=== PATIENT | female | born 1960 | race Caucasian/White ===

== ENCOUNTER → 2019-09-07 11:39 | Outpatient (CLI) | payer BC, SELFPAY ==
--- NOTE | ~2019-09-07 | MM_ITS ---
EXAMINATION: MM screening jamal BI w zuleika HISTORY: Screening mammogram TECHNIQUE: Craniocaudal and mediolateral oblique 3-D tomosynthesis images were obtained and synthetic 2-D images were generated. CAD analysis was submitted and interpreted. COMPARISON: 07/08/2018 BREAST PARENCHYMAL COMPOSITION: The breasts are heterogeneously dense, which may obscure small masses . FINDINGS: There is no evidence of suspicious mass, calcification, or architectural distortion to sugg est malignancy in either breast. There has been no suspicious interval change. IMPRESSION: 1. No mammographic evidence of malignancy. 2. Recommend routine screening mammography in one year. BI-RADS Category 1: Negative Reviewed, dictated and finalized at location A.
== END ==
PROVIDERS: Visit Provider Nurse Practitioner
DX: Z12.31 Encounter for screening mammogram for malignant neoplasm of breast (principal)
CPT/HCPCS: 77063; 77067

== ENCOUNTER 2020-09-13 08:56 | Outpatient (CLI) | payer BC, SELFPAY ==
--- NOTE | ~2020-09-13 | MM_ITS ---
EXAMINATION: MM screening jamal BI w zuleika HISTORY: Screening mammogram, family history of breast cancer in her sister. TECHNIQUE: Craniocaudal and mediolateral oblique 3-D tomosynthesis images were obtained and synthetic 2-D images were generated. CAD analysis was submitted and interpreted. COMPARISON: 09/07/2019, 07/08/2018 BREAST PARENCHYMAL COMPOSITION: The breasts are heterogeneously dense, which may obscure small masses . FINDINGS: RIGHT BREAST: There is no evidence of suspicious mass, calcification, or architectural distortion to suggest malignancy. There has been no significant interval change. LEFT BREAST: There is a possible mass in the posterior third of the outer breast best appreciated 8 c m from the nipple on the craniocaudal view (tomosynthesis image 32/72). IMPRESSION: 1. Possible left breast mass. 2. Additional mammographic views and possible breast ultrasound are recommended. BI-RADS Category 0: Incomplete: Needs additional imaging evaluation. Reviewed, dictated and finalized at location A. IMPRESSION: 1. Possible left breast mass. 2. Additional mammographic views and possible breast ultrasound are recommended . BI-RADS Category 0: Incomplete: Needs additional imaging evaluation.
--- NOTE | ~2020-09-13 | DEXA_ITS ---
Bone Density Report Name: Laurie Adame Age: 60 Sex: Female Ethnicity: White Date of : 1960 Indication: postmenopausal; history of glucocorticoids; Referring Provider: KIRA SHAVER Study: Bone densitometry was performed. Exam Date: September 13, 2020 Accession number: [id number] Bone Density: Region BMD T-score Z-score Classification AP Spine (L1-L4) 0.942 -1.0 0.3 Normal Femoral Neck (Left) 0.730 -1.1 0.1 Osteopenia Total Hip (Left) 0.916 -0.2 0.6 Normal Total Hip Bilateral Avg 0.868 -0.6 0.2 Normal Femoral Neck (Right) 0.659 -1.7 -0.5 Osteopenia Total Hip (Right) 0.818 -1.0 -0.2 Normal World Health Organization criteria for BMD impression classify patients as: Normal (T-score at or above -1.0), Osteopenia (T-score between -1.0 and -2.5), or Osteoporosis (T-score at or below -2.5). 10-year Fracture Risk(1): Major Osteoporotic Fracture 13% Hip Fracture 1.5% Reported Risk Factors: [place] (), Neck BMD=0.659, BMI=26.2, glucocorticoids (1) FRAX(R) Version 3.08. Fracture probability calculated for an untreated patient. Fracture probability may be lower if the patient has received treatment. Clinical Information Provided by Patient: Has taken Glucocorticoids Has used the following medications: Fosamax (i.e. alendronate), Vitamin D Patient maximum height was 66.0 Menopause Age: 53 No regular weight bearing exercise Drinks caffeinated beverages Onset of menses at age 17 Number of children 3 Impression: The patient has low bone mass, based on the Right Femoral Neck T-score. The patient has an estimated ten-year risk of hip fracture of 1.5% and an estimated ten-year risk of major fracture of 13%, based on the WHO FRAX algorithm. The patient has risk factors, including: history of glucocorticoid therapy. Discussion: BONE DENSITY IS LOW AT ONE OR MORE SKELETAL SITES. This patient's lowest T-score is low at one or more skeletal sites. It meets the World Health Organization's (WHO) criteria for ?low bone mass? (T-score between -1.0 and -2.5). The patient's 10-year risk of fracture as calculated by FRAX is less than the threshold where pharmacological therapy is recommended by the National Osteoporosis Foundation (NOF). However, all treatment decisions require clinical judgment and consideration of individual patient factors, including patient preferences, comorbidities, previous drug use, risk factors not captured in the FRAX model (e.g., frailty, falls, vitamin D deficiency, increased bone turnover, interval significant decline in bone density) and possible under or overestimation of fracture risk by FRAX. The patient should follow a healthful lifestyle (good nutrition with adequate calcium and vitamin D, and appropriate weight-bearing exercise). Follow-Up: Consider repeating this study i
== END 2020-09-13 08:57 | disposition home or self-care (01) ==
PROVIDERS: PCP Family Medicine; Visit Provider Obstetrics & Gynecology Gynecology
DX: Z12.31 Encounter for screening mammogram for malignant neoplasm of breast (principal); Z78.0 Asymptomatic menopausal state; R92.8 Other abnormal and inconclusive findings on diagnostic imaging of breast; M85.852 Other specified disorders of bone density and structure, left thigh; M85.851 Other specified disorders of bone density and structure, right thigh
CPT/HCPCS: 77063; 77067; 77080

== ENCOUNTER 2020-10-16 11:14 | Outpatient (CLI) | payer BC, SELFPAY ==
--- NOTE | ~2020-10-16 | MMUS_ITS ---
EXAMINATION: MM diagnostic mammo unilat LT, US breast LT limited HISTORY: Possible left breast mass in posterior third of outer breast on 09/13/2020 craniocaudal scree roel mammogram view TECHNIQUE: Additional 3-D tomosynthesis images of the left breast were performed and synthetic 2-D im ages were generated. CAD analysis was submitted and interpreted. High resolution upper outer and lowe r-outer breast ultrasound was performed. COMPARISON: 09/13/2020 bilateral digital screening FINDINGS: MAMMOGRAPHIC FINDINGS: No suspicious reproducible mass or architectural distortion is evident. ULTRASOUND: No mass or shadowing is detected in the upper outer or lower outer quadrants of the left breast. IMPRESSION: 1. No mammographic evidence of malignancy 2. Routine mammographic screening is recommended. BI-RADS Category 1: Negative Reviewed, dictated and finalized at location A. IMPRESSION: 1. No mammographic evidence of malignancy 2. Routine mammographic screening is recommended. BI-RADS Category 1: Negative
== END 2020-10-16 11:15 | disposition home or self-care (01) ==
PROVIDERS: PCP Family Medicine; Visit Provider Obstetrics & Gynecology Gynecology
DX: R92.8 Other abnormal and inconclusive findings on diagnostic imaging of breast (principal)
CPT/HCPCS: 76642; 77065

== ENCOUNTER 2022-01-23 09:51 | Outpatient (CLI) | payer BC, SELFPAY ==
--- NOTE | ~2022-01-23 | MM_ITS ---
EXAMINATION: MM screening jamal BI w zuleika HISTORY: Screening TECHNIQUE: Craniocaudal and mediolateral oblique 3-D tomosynthesis images were obtained and synthetic 2-D images were generated. CAD analysis was submitted and interpreted. COMPARISON: Comparison to multiple prior studies sequentially, with oldest reviewed study dated 07/08. BREAST PARENCHYMAL COMPOSITION: Breast composed of scattered areas of fibroglandular density FINDINGS: There is no evidence of suspicious mass, calcification, or architectural distortion to sugg est malignancy in either breast. There has been no suspicious interval change. IMPRESSION: 1. No mammographic evidence of malignancy. 2. Recommend routine screening mammography in one year. BI-RADS Category 1: Negative Reviewed, dictated and finalized at location A.
== END 2022-01-23 09:52 | disposition home or self-care (01) ==
PROVIDERS: PCP Family Medicine; Visit Provider Nurse Practitioner
DX: Z12.31 Encounter for screening mammogram for malignant neoplasm of breast (principal)
CPT/HCPCS: 77063; 77067

== ENCOUNTER → 2022-03-18 13:36 | Outpatient (CLI) | payer BC, SELFPAY ==
--- NOTE | ~2022-03-18 | US_ITS ---
US thyroid INDICATION: Thyroid goiter TECHNIQUE: Real-time sonographic images of the thyroid gland were obtained. COMPARISON: Nontoxic thyroid goiter FINDINGS: The right thyroid lobe measures 4.6 x 1.7 x 1.6 cm. The left thyroid lobe measures 4 x 1.2 x 1.4 cm. There is an oval solid hypoechoic right thyroid mass with ill-defined margins, wider than tall and no echogenic foci measuring 2.1 x 1.1 x 1.3 cm, TR 4. No other masses. Normal vascular flow is present. IMPRESSION: 1. Right thyroid mass measuring 2.1 cm, TR 4. Recommend ultrasound-guided fine-needle aspiration bio psy. Reviewed, dictated and finalized at location B. IMPRESSION: 1. Right thyroid mass measuring 2.1 cm, TR 4. Recommend ultrasound-guided fine -needle aspiration biopsy.
== END ==
PROVIDERS: PCP Family Medicine; Visit Provider Family Medicine
DX: E07.9 Disorder of thyroid, unspecified (principal)
CPT/HCPCS: 76536

== ENCOUNTER 2022-04-10 12:36 | Outpatient (CLI) | payer BC, SELFPAY ==
--- NOTE | ~2022-04-10 | US_ITS ---
EXAMINATION: US FNA w image guidance DATE: 04/10/2022 14:30 INDICATION: Nontoxic single thyroid nodule TECHNIQUE: The procedure and its benefits and risks were discussed with the patient. Risks specifically discusse d included bleeding and infection. The patient verbalized understanding of the risks and agreed to pr oceed. A time out was performed to verify patient information and procedure. The neck was prepared an d draped in the usual sterile manner. 3 mL 1% lidocaine was used for local anesthesia. Six passes w ere made with a 25G needle into the lesion. Appropriate needle location was documented with continuo us sonographic guidance. A sterile bandage was applied. There were no immediate complications. FINDINGS: Grayscale ultrasound images demonstrate needles advanced into a right thyroid nodule for biopsy. IMPRESSION: 1. Successful ultrasound-guided fine needle aspiration of right thyroid nodule. Reviewed, dictated and finalized at location A.
== END 2022-04-10 12:37 | disposition home or self-care (01) ==
PROVIDERS: PCP Family Medicine; Visit Provider Physician Assistant
DX: E04.1 Nontoxic single thyroid nodule (principal)
CPT/HCPCS: 10005; 88173; 88305

== ENCOUNTER 2022-07-26 09:56 | Outpatient (CLI) | payer BC, SELFPAY ==
--- NOTE | 2022-07-26 10:06 | ECG_ITS ---
Measurements Intervals [place] Rate: 65 P: 43 VA: 147 QRS: 89 QRSD: 102 T: 38 QT: 398 QTc: 416 Interpretive Statements SINUS RHYTHM LOW QRS VOLTAGE IN PRECORDIAL LEADS [QRS DEFLECTION < 1.0 mV IN CHEST LEADS] MODERATE T-WAVE ABNORMALITY, CONSIDER ANTEROLATERAL ISCHEMIA [-0.1+ mV T WAVE IN V3-V6] ABNORMAL ECG NO PREVIOUS ECG AVAILABLE FOR COMPARISON Electronically Signed On 07-26-2022 14:59:35 REJOGGER by Arturo New M.D.
== END 2022-07-26 09:57 | disposition home or self-care (01) ==
LOC: ANHSURGERY 09:59
PROVIDERS: PCP Family Medicine; Visit Provider Otolaryngology
DX: E78.2 Mixed hyperlipidemia (principal); Z01.818 Encounter for other preprocedural examination; R94.31 Abnormal electrocardiogram [ECG] [EKG]
CPT/HCPCS: 93005

== ENCOUNTER 2022-08-23 09:04 | Outpatient (CLI) | payer BC, SELFPAY ==
--- NOTE | 2022-08-23 09:18 | EST_ITS ---
Patient Info Name: Laurie Adame Age: 62 years : 1960 Gender: Female Ht: 66 in Wt: 165 lbs BSA: 1.88 m2 HR: 61 bpm BP: 125 / 68 mmHg Heart Rhythm: Sinus Rhythm Exam Date: 08/23/2022 9:31 AM Exam Location: [facility] Stress Patient Status: Outpatient Admit Date: 08/23/2022 Staff Ordering Physician: Bernice Carney NP Attending Provider: Tona Duran MD Exercise Technologist: Gracie Lee CT Exercise Physician: Donato Grimes DO Exam Type: CA stress test treadmill Study Info Indications - SYNCOPE A treadmill exercise stress test was performed. Summary 1. 1. Negative Marquise exercise stress test for ischemic ST changes by ECG criteria. 2. 2. Good functional capacity, achieving 8.9 METs of workload. 3. 3. Appropriate HR response to exercise. 4. 4. Appropriate HR recovery at 1 minute post exercise. 5. 5. No imaging with stress testing. 6. 6. Patient informed of the above results. Protocol: Marquise Stress ECG Details Stage: REST Duration (min): 1 min : 27 sec Speed (mph): 0.0 Grade (%): 0 HR (bpm): 66 SBP (mmHg): 125 DBP (mmHg): 68 METS: --- Stage: REST Duration (min): 11 min : 41 sec Speed (mph): 0.0 Grade (%): 0 HR (bpm): 76 SBP (mmHg): 125 DBP (mmHg): 68 METS: --- Stage: STAGE 1 Duration (min): 1 min : 0 sec Speed (mph): 1.7 Grade (%): 10 HR (bpm): 101 SBP (mmHg): 125 DBP (mmHg): 68 METS: --- Stage: STAGE 1 Duration (min): 2 min : 0 sec Speed (mph): 1.7 Grade (%): 10 HR (bpm): 112 SBP (mmHg): 125 DBP (mmHg): 68 METS: --- Stage: STAGE 1 Duration (min): 3 min : 0 sec Speed (mph): 1.7 Grade (%): 10 HR (bpm): 111 SBP (mmHg): 132 DBP (mmHg): 61 METS: --- Stage: STAGE 2 Duration (min): 1 min : 0 sec Speed (mph): 2.5 Grade (%): 12 HR (bpm): 121 SBP (mmHg): 132 DBP (mmHg): 61 METS: --- Stage: STAGE 2 Duration (min): 2 min : 0 sec Speed (mph): 2.5 Grade (%): 12 HR (bpm): 129 SBP (mmHg): 132 DBP (mmHg): 61 METS: --- Stage: STAGE 2 Duration (min): 3 min : 0 sec Speed (mph): 2.5 Grade (%): 12 HR (bpm): 139 SBP (mmHg): 132 DBP (mmHg): 61 METS: --- Stage: STAGE 3 Duration (min): 1 min : 0 sec Speed (mph): 3.4 Grade (%): 14 HR (bpm): 150 SBP (mmHg): 186 DBP (mmHg): 62 METS: --- Stage: STAGE 3 Duration (min): 1 min : 0 sec Speed (mph): 3.4 Grade (%): 14 HR (bpm): 152 SBP (mmHg): 186 DBP (mmHg): 62 METS: --- Stage: RECOVERY Duration (min): 0 min : 59 sec Speed (mph): 0.0 Grade (%): 0 HR (bpm): 115 SBP (mmHg): 186 DBP (mmHg): 62 METS: --- Stage: RECOVERY Duration (min): 1 min : 59 sec Speed (mph): 0.0 Grade (%): 0 HR (bpm): 92 SBP (mmHg): 186 DBP (mmHg): 62 METS: --- St
== END 2022-08-23 09:05 | disposition home or self-care (01) ==
LOC: ANHCARD 09:06
PROVIDERS: PCP Family Medicine; Visit Provider Family Medicine
DX: R94.31 Abnormal electrocardiogram [ECG] [EKG] (principal)
CPT/HCPCS: 93017

== ENCOUNTER 2022-10-14 00:49 | Day surgery (SDC) | payer BC, SELFPAY ==
[2022-07-24 11:41] VITALS: BMI 26.6
--- NOTE | 2022-07-24 11:46 | PC.NURSE ---
Report to the Outpatient Waiting Room, entrance under the green pavilion located off [facility], at time 8:00 on date 08/05/22. Planned Procedure Time: 10:00. Time changes happen often and if your time is changed the preop area will call you the afternoon before. - You and your visitor will be asked to self-screen and do not enter if you have any COVID symptoms. - Only one visitor is requested with a max of two and NO children visitors are allowed at this time. - The patient visitor may be requested to leave or wait in car when not with patient due to distancing restrictions. - A mask is optional within the hospital at this time. Patients may have clear liquids (water, carbonated beverages, clear teas, apple juice) until 3 hours prior to surgery with a maximum of 20 ounces. - No food from midnight until time of surgery Take the following medications with a SIP of water the morning of surgery: NONE DO NOT STOP ANY OF YOUR OTHER PRESCRIPTION MEDICATIONS PRIOR TO SURGERY EXCEPT THE FOLLOWING Medications to discontinue per physician: VITAMINS Date to take last dose: 08/01/22 Please no make-up, nail persian, hairspray, perfume, deodorant, or body powder the day of surgery. No jewelry (including any body piercings) or valuables the day of surgery, leave them at home. Please take a shower or bath the night before, or the morning of, surgery with an antibacterial soap. Wear comfortable, loose fitting clothing. - Jewelry must be removed prior to entering the operating room. Rings and piercings that are not removed may be cut off. - The hospital will not accept responsibility for valuables. - Please leave all valuables, including medications, at home the day of surgery. If you are going home after surgery, a licensed special client bus driver must drive you home. - NO public transportation without another adult if you receive anesthesia. - We recommend that an adult stay with you for 24 hours following discharge. - We also recommend that you do not drive, make important decision, drink alcoholic beverages, or take any drugs that were not prescribed by your health care provider for at least 24 hours after your discharge time. Follow any additional instructions given to you from your surgeon. If you or anyone in your household have experienced Covid symptoms in the past week, please notify your surgeon or the nurse liaison at the phone number below for possible testing. Telephone instructions given to PT - JEFF CORRAL and asked if any additional questions and then verbalized understanding. Patient advised to call surgeon office or pre surgery nurse liaison [phone] if any additional questions.
--- NOTE | 2022-10-03 10:08 | PC.NURSE ---
Report to the Outpatient Waiting Room, entrance under the green pavilion located off [facility], at time 0600 on date 10/14/22. Planned Procedure Time: 0730. Time changes happen often and if your time is changed the preop area will call you the afternoon before. - You and your visitor will be asked to self-screen and do not enter if you have any COVID symptoms. - A mask is optional within the hospital at this time. Patients may have clear liquids (water, carbonated beverages, clear teas, apple juice) until 3 hours prior to surgery with a maximum of 20 ounces. - No food from midnight until time of surgery Take the following medications with a SIP of water the morning of surgery: NONE DO NOT STOP ANY OF YOUR OTHER PRESCRIPTION MEDICATIONS PRIOR TO SURGERY EXCEPT THE FOLLOWING Medications to discontinue per physician: VITAMINS/SUPPLEMENTS Date to take last dose: 10/10/22 Please no make-up, nail turkish, hairspray, perfume, deodorant, or body powder the day of surgery. No jewelry (including any body piercings) or valuables the day of surgery, leave them at home. Please take a shower or bath the night before, or the morning of, surgery with an antibacterial soap. Wear comfortable, loose fitting clothing. - Jewelry must be removed prior to entering the operating room. Rings and piercings that are not removed may be cut off. - The hospital will not accept responsibility for valuables. - Please leave all valuables, including medications, at home the day of surgery. If you are going home after surgery, a licensed milk tanker driver must drive you home. - NO public transportation without another adult if you receive anesthesia. - We recommend that an adult stay with you for 24 hours following discharge. - We also recommend that you do not drive, make important decision, drink alcoholic beverages, or take any drugs that were not prescribed by your health care provider for at least 24 hours after your discharge time. Follow any additional instructions given to you from your surgeon. If you or anyone in your household have experienced Covid symptoms in the past week, please notify your surgeon or the nurse liaison at the phone number below for possible testing. Telephone instructions given to PT - JEFF CORRAL and asked if any additional questions and then verbalized understanding. Patient advised to call surgeon office or pre surgery nurse liaison [phone] if any additional questions.
[2022-10-14] VITALS (8 sets, daily range): BP systolic 125–145; BP diastolic 65–76; PULSE 64–88; RESP 14–20; TEMP 36.2–36.9; O2SAT 96–100
[2022-10-14] MEDS: LACTATED RINGERS 1,000 ML 30 ML IV CONT ×2 (06:33→09:22)
[2022-10-14] MEDS: ACETAMINOPHEN 500 MG TABLET 1000 MG PO (06:34)
--- NOTE | 2022-10-14 06:56 | WPDANESEPPF ---
Anes - Initial Pre Proc Eval Procedure: Operation Date: 10/14/22 07:30 Proposed Procedures p Right Thyroid Lobectomy - All Babin MD Date/Time: 10/14/22 06:56 Surgeon: All Babin MD Pre Op Diagnosis: thyroid nodule Patient Data Age: 62 Gender: F Height: 1.68 m Weight: 77.6 kg Last Vital Signs Temp 36.9 C 10/14/22 06:28 Pulse 64 10/14/22 06:28 Resp 18 10/14/22 06:28 BP 132/66 10/14/22 06:28 Pulse Ox 96 10/14/22 06:28 O2 Del Method Room Air 10/14/22 06:28 Allergies Allergy/AdvReac Type Severity Reaction Status Date / Time No Known Allergies Allergy Mild Verified 10/14/22 06:22 Home Medications Medication Instructions Recorded Confirmed Type alendronate 70 mg tablet 70 mg PO WEEKLY 03/03/20 10/14/22 History mesalamine 1.2 gram tablet,delayed 4.8 gm PO DAILY 03/03/20 10/14/22 History release ergocalciferol (vitamin D2) 1,250 1,250 unit PO WEEKLY 07/24/22 10/14/22 History mcg (50,000 unit) capsule rosuvastatin 10 mg tablet 10 mg PO HS #90 tabs 08/02/22 10/14/22 Rx Patient hx anesthesia problems: none Family hx anesthesia problems: none Results Review: All pre-operative results and documents have been reviewed as part of the pre-operative evaluation. [facility] Past Medical History Medical History Mixed hyperlipidemia Mixed hyperlipidemia Osteopenia Osteopenia of necks of both femurs Other specified disorders of bone density and structure, left ankle and foot Ulcerative colitis Ulcerative pancolitis with fistula Family History Family History Sibling Diabetes mellitus Breast cancer Skin cancer Mother Family history of arthritis Hypertension Father Hypertension Social History Social History Social History: Smoking status: Never smoker Second hand tobacco smoke exposure: No Alcohol intake: current Alcohol use details: RARE Substance use: never Substance use type: does not use Living arrangements: with family Occupation/Education: retired Gender identity (if verbalized by the patient): Female Sexual Orientation (if Verbalized by the Patient): Straight or Heterosexual Spiritual care concerns: No Anes - Eval Final PreProcedure Day of Procedure 10/14/22 06:56 Patient weight: overweight Heart: regular rate and rhythm Lungs: clear to auscultation Airway: Mallampati scale class II Neurological: alert and oriented Last oral intake: >/= 8 hours ASA classification: III Emergent: no Anesthetic plan: proceed Anesthesia type and monitoring: general ETT and standard monitoring Results Review: All pre-operative results and documents have been reviewed as part of the pre-operative evaluation. Informed Consent: The patient's anesthetic plan and its attendant risks and benefits were discussed with the patient/family/POA. Questions were solicited and answers provided to the satisfaction of the patient/family/POA.
--- NOTE | 2022-10-14 07:22 | PM.IMHP ---
H&P: HPI History of Present Illness Date/Time: 10/14/22 07:22 Chief Complaint: right thyroid nodule Narrative: right thyroid nodule, previous non diagnostic biopsies. Here for surgical removal. Review of Systems Review of Systems: All systems reviewed & are unremarkable except as noted in HPI and below PMFSH Past Medical History Medical History Mixed hyperlipidemia Mixed hyperlipidemia Osteopenia Osteopenia of necks of both femurs Other specified disorders of bone density and structure, left ankle and foot Ulcerative colitis Ulcerative pancolitis with fistula Family History Family History Sibling Diabetes mellitus Breast cancer Skin cancer Mother Family history of arthritis Hypertension Father Hypertension Social History Social History Social History: Smoking status: Never smoker Second hand tobacco smoke exposure: No Alcohol intake: current Alcohol use details: RARE Substance use: never Substance use type: does not use Living arrangements: with family Occupation/Education: retired Gender identity (if verbalized by the patient): Female Sexual Orientation (if Verbalized by the Patient): Straight or Heterosexual Spiritual care concerns: No Meds Home Medications and Allergies Home Medications Medication Instructions Recorded Confirmed Type alendronate 70 mg tablet 70 mg PO WEEKLY 03/03/20 10/14/22 History mesalamine 1.2 gram tablet,delayed 4.8 gm PO DAILY 03/03/20 10/14/22 History release ergocalciferol (vitamin D2) 1,250 1,250 unit PO WEEKLY 07/24/22 10/14/22 History mcg (50,000 unit) capsule rosuvastatin 10 mg tablet 10 mg PO #90 tabs 08/02/22 10/14/22 Rx Allergies Allergy/AdvReac Type Severity Reaction Status Date / Time No Known Allergies Allergy Mild Verified 10/14/22 06:22 Vital Signs Vital Signs - 24 hr 10/14/22 06:28 Temperature 36.9 C Pulse Rate 64 Respiratory Rate 18 Blood Pressure 132/66 Pulse Oximetry 96 Oxygen Delivery Room Air Exam Narrative: 2cm right thyroid nodule, no cervical adenopathy, no stridor or hoarseness. rest of exam wnl. Assessment and Plan Assessment and plan (1) Abnormal thyroid biopsy: Code(s): R89.9 - Unspecified abnormal finding in specimens from other organs, systems and tissues Status: Acute (2) Thyroid nodule: Code(s): E04.1 - Nontoxic single thyroid nodule Status: Acute Plan Laurie is here for right thyroid lobectomy for nodule with non diagnostic FNA. r/b/a reviewed, pt understands and agrees to proceed with surgery. Refer to outpt H&P for further detail.
--- NOTE | 2022-10-14 07:24 | WPDHPUPDATE1 ---
History and Physical Update Update Date/Time: 10/14/22 07:24 History and Physical has been reviewed, including an updated exam of the patient. There are NO changes in the patient's condition. Risks, benefits, and alternatives have been discussed and questions answered. Patient agrees to proceed with procedure.
[2022-10-14] MEDS: ceFAZolin 2 GM/D5W 50 ML 2 GM/50 ML BAG IVPB (07:30)
[2022-10-14] MEDS: LIDO 1%/EPINEPHRINE 1:100,000 50 ML VIAL 10 ML INFILTRATE (09:12)
--- NOTE | 2022-10-14 09:23 | W.PM.PROC2 ---
Procedure Note - Detailed Date of Procedure 10/14/22 Pre-op Diagnosis thyroid nodule Post-op Diagnosis Same Procedure Performed Right thyroid lobectomy with laryngeal nerve monitor Surgeon All Babin MD Anesthesia General Indications Right thyroid nodule, non diagnostic FNA Findings 2cm right thyroid nodule ,no cervical adenopathy, RLN intact fully at end of case. Description of Procedure On the date of the procedure the patient was met in the preoperative area. The risks and benefits of the procedure reviewed with the patient who elected to proceed.? The patient was brought back to the operating room by the anesthesia team and underwent general endotracheal anesthesia using the glidescope to visualize the NIM tube being appropriately placed.? Once an adequate plane of anesthesia was obtained a timeout was performed to assure the correct patient identity and procedure to be performed which they were. The patient's neck landmarks were marked and the proposed incision was injected with 1% lidocaine with 1:100,000 epinephrine.? The patient was then prepped and draped in the normal fashion for a right thyroidectomy.? Neuro monitoring with a NIM endotracheal tube and nerve monitor were utilized throughout the surgery.? A shoulder roll was placed. A 4 cm incision was made two finger breadths above the sternal notch in a skin crease.?The incision was carried through subcutaneous tissue to the subcutaneous fat.? Electrocautery was used down to the level of the platysma which was incised. The strap muscles were identified and at the midline through the raphae.? The thyroid was identified and the strap muscles were elevated off of the right lobe. The right thyroid lobe was retracted medially and blunt dissection was carried out to free the thyroid from the surrounding strap muscles.? The superior pole of the thyroid was identified and the vessels were dissected and cauterized and ligated using harmonic scalpel.? The inferior pole was then identified and the vessels were similarly ligated with harmonic scalpel.? The thyroid was retracted medially and the superior parathyroid gland was identified and was dissected free from the thyroid gland.? The recurrent laryngeal nerve was as then identified and dissected free of surrounding tissue. The nerve was confirmed with the prass probe as intact and the correct anatomic tissue. With the thyroid free from the recurrent nerve, it was then elevated and retracted medially and dissected free from the trachea. Thornton?s ligament was taken down with bipolar and monopolar cautery.? The pyramidal lobe was also dissected free from surrounding tissue using harmonic. The specimen was then divided at the thyroid isthmus. A suture marked the superior aspect of the lobe. The specimen was examined, no evidence of parathyroid tissue being removed was noted. The right recurrent laryngeal nerve was found to be intact and confirmed with prass probe on the nerve monitor. The wound cavity was examined carefully. No bleeding was noted. Hemostasis obtained and confirmed with bipolar cautery. The strap muscles were re-approximated with a 3-0 Vicryl.? The platysma was closed with 3-0 Vicryl.? The deep dermal sutures were placed using 4-0 monocryl.? The skin was closed with a 4-0Monocryl running subcuticular.? The incision was closed with dermabond. No drain was placed. The care the patient was transferred back to the anesthesia team and the patient was awoke in the operating room and was transferred back to the PACU in stable condition without complication. All Babin M.D. Estimated Blood Loss 10 Drains No Packing No Pathology Yes (right thyroid lobectomy, suture rizzo superior) Complications No immediate complications Condition Stable Disposition PACU
[2022-10-14] MEDS: oxyCODONE HCL (*CRX) 5 MG TAB IR PO (10:34)
[2022-10-14 10:58] LABS: HIV 1/2 Ab P24 Ag Result Negative (Negative); Hepatitis C Virus Antibody Negative (Negative)
[2022-10-14 11:19] LABS: Hepatitis B Surface Antigen Negative (Negative)
== END 2022-10-14 11:07 | disposition home or self-care (01) ==
PROVIDERS: PCP Family Medicine; Visit Provider Otolaryngology
PROC: (CPT 60220; principal; 2022-10-14 07:30)
DX: E04.1 Nontoxic single thyroid nodule (principal); Z11.4 Encounter for screening for human immunodeficiency virus [HIV]; E78.2 Mixed hyperlipidemia; M85.80 Other specified disorders of bone density and structure, unspecified site
CPT/HCPCS: 60220; 36415; 86703; 86803; 87340; 88307; A9270; G0432; J0330; J0690; J1170; J1200; J2250; J2405; J2704; J3010; J7120

== ENCOUNTER 2023-05-26 08:51 | Outpatient (CLI) | payer BC, SELFPAY ==
--- NOTE | ~2023-05-26 | MM_ITS ---
EXAMINATION: MM screening jamal BI w zuleika HISTORY: Screening mammogram, family history of breast cancer in her sister. TECHNIQUE: Craniocaudal and mediolateral oblique 3-D tomosynthesis images were obtained and synthetic 2-D images were generated. CAD analysis was submitted and interpreted. COMPARISON: 01/23/2022, 09/13/2020 BREAST PARENCHYMAL COMPOSITION:There are scattered areas of fibroglandular density. FINDINGS: No suspicious mass, calcification, or architectural distortion are identified in either karie ast to suggest malignancy. There has been no suspicious interval change. IMPRESSION: No mammographic evidence of malignancy. Recommend routine screening mammography in one year. BI-RADS Category 1: Negative Reviewed, dictated and finalized at location . S EXPERT
== END 2023-05-26 08:52 | disposition home or self-care (01) ==
PROVIDERS: PCP Family Medicine; Visit Provider Nurse Practitioner
DX: Z12.31 Encounter for screening mammogram for malignant neoplasm of breast (principal)
CPT/HCPCS: 77063; 77067

== ENCOUNTER 2024-07-21 12:53 | Outpatient (CLI) | payer BC, SELFPAY ==
--- NOTE | ~2024-07-21 | DEXA_ITS ---
Bone Density Report Name: JEFF CORRAL Age: 64 Sex: Female Ethnicity: White Date of : 1960 Indication: postmenopausal; screening for osteoporosis; inflammatory bowel disease; Referring Provider: Tameka, Savana Study: Bone densitometry was performed. Exam Date: July 21, 2024 Accession number: [id number] Bone Density: Region BMD T-score Z-score Classification AP Spine(L1-L4) 0.950 -0.9 0.7 Normal Femoral Neck (Left) 0.734 -1.0 0.3 Normal Total Hip (Left) 0.908 -0.3 0.8 Normal Femoral Neck (Right) 0.707 -1.3 0.1 Osteopenia Total Hip (Right) 0.819 -1.0 0.1 Normal Femoral Neck Mean 0.720 -1.2 0.2 Osteopenia Total Hip Mean 0.864 -0.6 0.4 Normal World Health Organization criteria for BMD impression classify patients as: Normal (T-score at or above -1.0), Osteopenia (T-score between -1.0 and -2.5), or Osteoporosis (T-score at or below -2.5). Clinical Information Provided by Patient: Has used the following medications: Fosamax (i.e. alendronate), Vitamin D Has the following medical conditions: Inflammatory bowel diseases Patient maximum height was 66 Menopause Age: 54 No regular weight bearing exercise Drinks caffeinated beverages Onset of menses at age 17 Number of children 3 Impression: The patient has low bone mass, based on the Right Femoral Neck T-score. Discussion: BONE DENSITY IS LOW AT ONE OR MORE SKELETAL SITES. This patient's lowest T-score is low at one or more skeletal sites. It meets the World Health Organization's (WHO) criteria for ?low bone mass? (T-score between -1.0 and -2.5). The patient's 10-year risk of fracture as calculated by FRAX is less than the threshold where pharmacological therapy is recommended by the National Osteoporosis Foundation (NOF). However, all treatment decisions require clinical judgment and consideration of individual patient factors, including patient preferences, comorbidities, previous drug use, risk factors not captured in the FRAX model (e.g., frailty, falls, vitamin D deficiency, increased bone turnover, interval significant decline in bone density) and possible under or overestimation of fracture risk by FRAX. The patient should follow a healthful lifestyle (good nutrition with adequate calcium and vitamin D, and appropriate weight-bearing exercise). Follow-Up: Consider repeating this study in 2 to 3 years to reassess this patient's status, or sooner if there is some new clinical indication. Reported by: MEGAN on 07/21/2024 1:28:00 PM. Reviewed, dictated and finalized at location A.
--- NOTE | ~2024-07-21 | MM_ITS ---
EXAMINATION: MM screening [facility] BI w zuleika HISTORY: Screening TECHNIQUE: Craniocaudal and mediolateral oblique 3-D tomosynthesis images were obtained and synthetic 2-D images were generated. CAD analysis was submitted and interpreted. COMPARISON: Comparison to multiple prior studies sequentially, with oldest reviewed study dated 07/08. BREAST PARENCHYMAL COMPOSITION: Not dense: There are scattered areas of fibroglandular density. FINDINGS: There is no evidence of suspicious mass, calcification, or architectural distortion to sugg est malignancy in either breast. There has been no suspicious interval change. IMPRESSION: 1. No mammographic evidence of malignancy. 2. Recommend routine screening mammography in one year. BI-RADS Category 1: Negative Reviewed, dictated and finalized at location A. REGULATOR
--- OUTSIDE RECORDS SUMMARY | 2024-07-21 13:49 | XMS_ITS | Clinical Summary ---
Author Organization [facility] Address [address] [place] [address] Care Team Providers Care Life Skills Trainer Name Role Phone Tona Duran MD Primary Care Provider Allergies No known active allergies Medications alendronate (FOSAMAX) 70 mg tablet once a week 3 07/29/2018 Active rosuvastatin (CRESTOR) 10 mg tablet daily 0 08/18/2018 Active PARoxetine (PAXIL) 10 mg tablet Take 10 mg by mouth nightly at bedtime. 11/15/2021 Active mesalamine (LIALDA) 1.2 gram EC tablet TAKE 4 TABLETS BY MOUTH EVERY DAY 360 tablet 1 03/26/2024 Active ergocalciferol (VITAMIN D) 50,000 unit capsule TAKE ONE CAPSULE BY MOUTH TWICE A MONTH 03/23/2024 Active omeprazole (PriLOSEC) 20 mg capsule Take 1 capsule (20 mg total) by mouth daily Active Active Problems Problem Noted Date Diagnosed Date Ulcerative colitis 05/11/2019 Assessment & Plan (05/11/2019 4:25 PM WARP TESTER): We remain concerned that her colitis represents Crohn's disease but she does appear in remission on mesalamine alone and has had not had any recurrence of fistulizing disease. She currently is not bothered by her rectovaginal fistula and is not interested in surgical intervention at this time. Plan 1. 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 Assessment & Plan (05/11/2019 4:26 PM WARP TESTER): Patient denies significant symptoms hand is uninterested in further intervention Crohn's disease of small and large intestines with complication 09/15/2018 Overview (09/15/2018): Added automatically from request for surgery [id number] Encounters Date Type Department Care Team Description 04/27/2024 Orders Only [facility] Scanning, Provider 04/20/2024 8:45 AM CDT Office Visit [facility] Counts include [address] beds at the [facility] [address] [place] [address] [place] [phone] Taylor Lugo MD Ulcerative pancolitis with fistula (HCC) (Primary Dx); Rectovaginal fistula 04/20/2024 Documentation [facility] [address] [facility] [address] [place] [address] [place] [phone] Ely Nunez RN Treatment Plan Update (05/21/2024 rov) from Last 3 Months Surgical History Surgery Date Site/Laterality Comments DILATION AND CURETTAGE OF UTERUS two seperate times BREAST CYST EXCISION Right COLONOSCOPY FISTULA REPAIR unsuccessful per pt Medical History Medical History Date Comments Crohn's disease (CMS/HCC) (HCC) Chronic diarrhea Thyroid nodule Family History Medical History Relation Name Comments Hypertension Father Hypertension Mother Relation Name Status Comments Father Mother Social History Tobacco Use Types Packs/Day Years Used Date Smoking Tobacco: Never Smokeless Tobacco: Never Tobacco Cessation:Counseling Given: Not Answered Alcohol Use Standard Drinks/Week Comments Yes 0 (1 standard drink = 0.6 oz pur e alcohol) AUDIT-C Answer Date Recorded Q1: How often do you have a drink containing alc ohol? Monthly or less 06/19/2022 Q2: How many drinks containi ng alcohol do you have on a typical day when you are drinking? 1 or 2 06/19/2022 Frequency of Binge Drinking Not on file 05/24 Personal Safety Answer Date Recorded Getting School Help Needed Not on file 06/22 Comments No Sex and Gender Information Value Date Recorded Sex Assigned at Not on file Legal Sex Female 1:46 PM WARP TESTER Gender Identity Not on file Sexual Orientation Not on file Obstetrics History Last Filed Vital Signs Vital Sign Reading Time Taken Comments Blood Pressure 130/85 04/20/2024 8:54 AM CDT Pulse 65 04/20/2024 8:54 AM CDT Temperature 36.7 ??C (98 ??F) 04/20/2024 8:54 AM CDT Respiratory Rate 11 06/19/2022 9:46 AM WARP TESTER Oxygen Saturation 100% 06/19/2022 9:46 AM WARP TESTER Inhaled Oxygen Concentration - - Weight 78.7 kg (173 lb 6.4 oz) 04/20/2024 8:54 A M CDT Height 167.6 cm (5' 6 ) 04/20/2024 8:54 AM CDT Body Mass Index 27.99 04/20/2024 8:54 AM CDT Plan of Treatment Health Maintenance Due Date Last Done Comments Cervical Cancer Screening 1960 Depression Screening 1962 Hepatitis C Screening 1962 DTaP/Tdap/Td Vaccine (1 - Tdap) 1973 Hepatitis B Screening 1980 Regular Well Visit/Exam 18-64 1980 Zoster Vaccine (1 of 2) 2012 Breast Cancer Screening-Mammogram 05/01/2018 05/01/2017, 11/23/2015, 07/28/2014, Additional history exists Influenza Vaccine (#1) 2024 04/04/2023, 2019 Colon Cancer Screening-Colonoscopy 06/19/2032 06/19/2022, 11/13/2018 Colon Cancer Screening-CT Colonography Discontinued 06/19/2022, 11/13/2018 Colon Cancer Screening-DNA Stool Discontinued 06/19/2022, 11/13/2018 Colon Cancer Screening-FIT Discontinued 06/19/2022, Colon Cancer Screening-Sigmoidoscopy Discontinued 06/19/2022, 11/13/2018 Pneumococcal vaccine <65 Aged Out No longer eligible based on patient's age to complete this topic Procedures Procedure Name Priority Date/Time Associated Diagnosis Comments SCAN - LABS 04/27/2024 COLONOSCOPY 06/19/2022 8:37 AM WARP TESTER from Last 3 Months or Most Recently Relevant to Health Maintenance Results * SCAN - LABS (04/27/2024) us Provider Scanning Final Result * COLONOSCOPY (06/19/2022 8:37 AM WARP TESTER) Anatomical Region Laterality Modality Other Narrative Procedure Note Taylor Lugo MD - 06/19/2022 8:37 AM CST [facility] END[facility] Patient Name: Laurie Adame Procedure Date: 06/19/2022 8:37 AM Date of : 1960 Admit Type: Outpatient Age: 62 Gender: Female Attending MD: Taylor Lugo M.D. Room: [facility] ENDOSCOPY ROOM 3 Note Status: Finalized Procedure: Colonoscopy Indications: Long standing indeterminate colitis Referring MD: Vadim Sharp Providers: Taylor Lugo M.D. Medicines: Monitored Anesthesia Care Complications: No immediate complications. Estimated blood loss: Minimal. Estimated Blood Loss: Estimated blood loss was minimal. Procedure: Pre-Anesthesia Assessment: - Immediately prior to administration ofmedications, the patient was re-assessed for adequacy to receive sedatives. - The risks and benefits of the procedure and the sedation options and risks were discussed with the patient. All questions were answered and informed consent was obtained. The benefits, risks and alternatives of theprocedure and sedation were discussed and informed consentwas obtained. All questions were answered. Please referto the signed informed consent document in the medical record. The scope was passed under direct vision.The CF [id number] endoscope was introduced through the anus and advanced to the cecum, identified by appendiceal orifice and ileocecal valve. The colonoscopy was performed without difficulty. The patient tolerated the procedure well. The qualityof the bowel preparation was good. The bowelpreparation used was Miralax via split dose instruction. Findings: The perianal and digital rectal examinations were normal. Inflammation was not found based on the endoscopic appearance of the mucosa in the colon. This was graded as Adame Score 0 (normal orinactive disease), and when compared to the previous examination, the findings are in remission. Biopsies were taken with a cold forceps forhistology. Non-bleeding internal hemorrhoids were found during retroflexion. The hemorrhoids were small. Impression: - Inactive (Adame Score 0) ulcerative colitis, in remission since the last examination. Biopsied. - Non-bleeding internal hemorrhoids. Recommendation: - Await pathology results. - Continue present medications. Electronically signed by Taylor Lugo MD Taylor Lugo M.D. 06/19/2022 9:20:53 AM . Number of Addenda: 0 Note Initiated On: 06/19/2022 8:37 AM Recognized by the [employer] for promoting quality in endoscopy Taylor Lugo MD ENDOSCOPY PROCEDURES Final Re sult from Last 3 Months or Most Recently Relevant to Health Maintenance Insurance [facility] [employer] [facility] [employer] Advance Directives For more information, please contact: [phone] * Full Code (Latest Code Status on File) Date Activated Date Inactivated Comments 06/19/2022 7:42 AM 06/19/2022 2:24 PM * Full Code Date Activated Date Inactivated Comments 11/13/2018 9:52 AM 11/13/2018 4:03 PM Care Teams Life Skills Trainer Relationship Specialty Start Date End Date Tona Duran MD [address] [facility] [address] [place] [address] PCP - General Family Medicine 06/07/22
--- OUTSIDE RECORDS SUMMARY | 2024-07-21 13:49 | XMS_ITS | Clinical Summary ---
Author Organization [facility] Address [address] [place] [address] Care Team Providers Care Protection Chief Industrial Plant Name Role Phone Liliana Patel MD Unavailable + Marylin Mondragon MD Primary Care Provider [phone] Source Comments [facility],non-owned Affiliates and Associated Physician Practices is amultiple site organization consisting of ambulatory clinics and hospital sitesin [place], [place] and [place]. This disclosure is being madepursuant to the Care Everywhere program and may not contain all information available regarding this patient. Last updated 18.[facility] Allergies No known active allergies Medications * Be aware that medications may not be up to date on this document. Alwaysverify current medications with the patient. Medication Sig Dispensed Refills Start Date End Date Status dicyclomine (BENTYL) 20 MG tablet 20 mg as needed 0 02/13/2015 Active HUMIRA PEN 40 MG/0.8ML injection Inject 40 mg subcutaneously every 14 days 08/10/2017 Active Cholecalciferol (VITAMIN D-3) 1000 UNITS Take by mouth once daily Active rosuvastatin (CRESTOR) 10 MG tablet Take 10 mg by mouth once daily Active multivitamin daily (THERAGRAN) tablet Take 1 tablet by mouth daily with food Active HYDROcodone-aceta minophen (NORCO) 5-325 MG tablet Take 1 tablet by mouth every 6 hours as needed for Pain 30 tablet 12/18/2017 Active Active Problems Problem Noted Date Diagnosed Date Rectovaginal fistula 03/28/2015 UC (ulcerative colitis) 03/28/2015 Encounter for health-related screening 4 Overview (09/20/2017): 01/07/2014: PAP NILM --> Repeat 2017 11/23/2015: MMG negative BIRADS-2 04/21/2015: Targeted sono/MMG BIRADS-1 --> Repeat 07/2015 IMO update 09 21 2017 Family History Medical History Relation Name Comments Cancer Maternal Grandmother BREAST Cancer - Breast Maternal Grandmother Cancer Sister BREAST Cancer - Breast Sister Relation Name Status Comments Maternal Grandmother Sister Alive Social History Tobacco Use Types Packs/Day Years Used Date Smoking Tobacco: Never Smokeless Tobacco: Never Alcohol Use Standard Drinks/Week Comments Yes 0 (1 standard drink = 0.6 oz pur e alcohol) SELDOM Sex and Gender Information Value Date Recorded Sex Assigned at Not on file Gender Identity Not on file Sexual Orientation Not on file Last Filed Vital Signs Vital Sign Reading Time Taken Comments Blood Pressure 106/60 12/18/2017 11:34 AM CDT Pulse 72 12/18/2017 11:34 AM CDT Temperature 36.5 ??C (97.7 ??F) 12/18/2017 10:05 AM C DT Respiratory Rate 16 12/18/2017 11:34 AM CDT Oxygen Saturation 100% 12/18/2017 11:34 AM CDT Inhaled Oxygen Concentration - - Weight 72.6 kg (160 lb) 12/18/2017 6:50 AM CDT Height 167.6 cm (5' 6 ) 12/18/2017 6:50 AM CDT Body Mass Index 25.82 12/18/2017 6:50 AM CDT Plan of Treatment Health Maintenance Due Date Last Done Comments COLOGUARD (AGES 45-75) - COLON CA SCREENING 1960 CT COLONOGRAPHY - COLON CA SCREENING 1960 FIT - COLON CA SCREENING 1962 FLEX SIG - COLON CA SCREENING 1962 HIV SCREENING 1977 HEPATITIS C SCREENING 04/28/1980 DTAP/TDAP/TD VACCINES (1 - Tdap) 1981 PNEUMOCOCCAL VACCINE 50+ (1 of 1 - PCV) 2012 ZOSTER VACCINE (1 of 2) 2012 PAP SMEAR 01/26/2017 01/26/2014, 09/21, 10/21/1996 SCREENING FOR DIABETES 01/02/2018 MAMMOGRAM 05/01/2019 05/01/2017, 06/07/2015, 07/28/2014, Additional history exists COLON MONITORING 06/20/2022 06/20/2012, , 06/20/2012 COLONOSCOPY - COLON CA SCREENING 06/20/2022 06/20/2012, 06/20/2012, 06/20/2012 Colorectal Cancer Screening 06/20/2022 COVID-19 VACCINE (2023- season) 2024 INFLUENZA VACCINE (#1) 2024 DEPRESSION SCREENING 06/23/2024 Respiratory Syncytial Virus (RSV) Vaccine Pt: or over 60 yrs (1 - 1-dose 75+ series) 2037 HEPATITIS B VACCINE Aged Out No longe r eligible based on patient's age to complete this topic HIB VACCINE Aged Out No longer eligi ble based on patient's age to complete this topic HPV VACCINE Aged Out No longer eligi ble based on patient's age to complete this topic MENINGOCOCCAL (Group B) VACCINE Aged Out No longer eligible based on patient's age to complete this topic MENINGOCOCCAL VACCINE Aged Out No ramón gloria eligible based on patient's age to complete this topic PNEUMOCOCCAL VACCINE Aged Out No long er eligible based on patient's age to complete this topic Procedures Procedure Name Priority Date/Time Associated Diagnosis Comments MAMMO BILAT SCREENING Routine 05/01/2017 2:22 PM GUIDE DOG MOBILITY INSTRUCTOR Visit for screening mammogram CYTOLOGY CERVICAL/VAG PAP SCREEN THIN PREP Routine 01/26/2014 12:09 PM CDT Screening ENDOSCOPY, COLON, SCREENING Routine 06/20/2012 11:27 AM GUIDE DOG MOBILITY INSTRUCTOR from Last 3 Months or Most Recently Relevant to Health Maintenance Results * BAMBI SCREENING DIGITAL IMAGE BILATERAL [id number] (05/01/2017 2:22 PM GUIDE DOG MOBILITY INSTRUCTOR) Anatomical Region Laterality Modality Breast Bilateral Mammography 05/02/2017 8:00 AM GUIDE DOG MOBILITY INSTRUCTOR Impressions 05/02/2017 10:02 AM GUIDE DOG MOBILITY INSTRUCTOR No mammographic evidence of malignancy in either breast. ASSESSMENT: BIRADS Category 2: Benign finding(s). RECOMMENDATION: 1. Bilateral screening mammogram in one year. 2. Your patient recently completed a breast cancer risk assessment survey. Based on the information provided by your patient, it appears that she may be at increased risk for BRCA1/2 mutation. If you or your patient would like to schedule an appointment with a board-certified breast surgeon (Dr. Ethel Guerra) to discuss risk assessment and high-risk screening, please call [phone]. Thank you for allowing us to participate in the care of your patient. [facility] utilizes [employer] as a reminder system to notify patients of their next recommended mammogram. I, Shoshana Law, have personally reviewed the images and I agree with this report. Narrative 05/02/2017 10:02 AM GUIDE DOG MOBILITY INSTRUCTOR EXAMINATION: Digital screening mammogram on May 01, 2017. Low-dose full-field digital breast tomosynthesis examination was performed with synthetic 2D images and 3D acquisitions. Computer assisted detection was utilized. PRIOR: Several prior studies, most recently on 11/23/2015 and 04/21/2015. INDICATION: Screening mammogram. BREAST PARENCHYMAL DENSITY: The breasts are heterogeneously dense, which may obscure small masses. RISK ASSESSMENT CALCULATION: Based on the information provided by your patient, her lifetime risk of breast cancer is intermediate (15-20%). Her risk of a BRCA1/2 mutation is elevated. Additional quantitative risk model data and patient history details have been scanned as a document/letter in [facility] electronic medical record (media tab). Please note this information is only as accurate as the data entered by the patient. FINDINGS: No suspicious masses, areas of architectural distortion or microcalcifications are evident on synthetic 2D mammogram or tomosynthesis images. There are benign-appearing calcifications in the left breast. There has been no significant interval change since the prior examination. Marylin Mondragon MD MAMMO ORDERABLES * CYTOLOGY CERVICAL/VAG SCREEN THIN PREP (01/26/2014 12:09 PM CDT) ThinPrep Pap See Scanned Report 02/15/2014 12:06 PM CDT [facility] REF LAB NON INTERF Miscellaneous samples (specimen) ENTIRE ENDOCERVIX / Unknown Collection / Unknown 01/26/2014 12:09 PM CDT 01/26/2014 1:58 PM CDT Liliana Patel MD LAB - PATH OLOGY/CYTOLOGY ORDERABLES Performing Organization Address City/[facility]/ZIP Co de Phone Number [facility] REF LAB NON INTERF [address] * ENDOSCOPY, COLON, SCREENING (06/20/2012 11:27 AM GUIDE DOG MOBILITY INSTRUCTOR) Narrative [facility] ENDOSCOPY - 06/20/2012 11:27 AM GUIDE DOG MOBILITY INSTRUCTOR Procedure Note Erna Soto MD - 06/20/2012 11:27 AM CST Erna Soto MD GI PROCEDURE ORDERAB LES Performing Organization Address [facility] Co de Phone Number [facility] ENDOSCOPY from Last 3 Months or Most Recently Relevant to Health Maintenance Care Teams Protection Chief Industrial Plant Relationship Specialty Start Date End Date Liliana Patel MD [address] [place] [address] [place] [id number] PCP - OBGYN Obstetrics and Gynecology 09/23/12 Marylin Mondragon MD [address] [phone] PCP - General Internal Medicine 09/23/12
--- OUTSIDE RECORDS SUMMARY | 2024-07-21 13:49 | XMS_ITS | Patient Health Summary ---
Author Organization [facility] [employer] Address [address] [place] [address] Care Team Providers Care Warehouse Manager Name Role Phone Liliana Patel MD Unavailable + Marylin Mondragon MD Primary Care Provider [phone] Note from [facility],non-owned Affiliates and Associated Physician Practices is amultiple site organization consisting of ambulatory clinics and hospital sitesin [place], [place], [place] and [place]. This disclosure is being madepursuant to the Care Everywhere program and may not contain all information available regarding this patient. Last updated 18.[facility] [employer] Allergies No known active allergies Medications * Be aware that medications may not be up to date on this document. Alwaysverify current medications with the patient. 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 UC (ulcerative colitis) 03/28/2015 Encounter for health-related screening 4 Social History Tobacco Use Types Packs/Day Years [...] Mass Index 25.82 12/18/2017 6:50 AM CDT Procedures * CARDIAC RHYTHM STRIP ORDER(Performed 12/23/2017) * ENDOTRACHEAL TUBE NOTE(Performed 12/20/2017) * FISTULECTOMY/FISTULOTOMY ANAL(Performed 12/18/2017) Performed for Diagnosis unknown * MAMMO BILAT SCREENING(Performed 05/01/2017) Performed for Visit for screening mammogram * MAMMO BILAT SCREENING(Performed 11/23/2015) Performed for Visit for screening mammogram * US BREAST RIGHT LTD(Performed 04/21/2015) Performed for Breast lump on left side at 6 o'clock position * MAMMO RIGHT DIAGNOSTIC(Performed 04/21/2015) Performed for Breast lump on right side at 6 o'clock position * AMB REFERRAL TO COLORECTAL SURGERY(Performed 03/28/2015) * MAMMO BILAT SCREENING(Performed 07/28/2014) Performed for Other screening mammogram * CARDIAC RHYTHM STRIP ORDER(Performed 01/28/2014) * PATHOLOGY TISSUE EXAM (STL)(Performed 01/26/2014) * CYTOLOGY CERVICAL/VAG PAP SCREEN THIN PREP(Performed 01/26/2014) Performed for Screening * HCG URINE QUALITATIVE - POINT OF CARE(Performed 01/26/2014) * HYSTEROSCOPY(Performed 01/26/2014) Performed for Excessive Or Frequent Menstruation * DILATION AND CURETTAGE INCOMPLETE , ANY TRIMESTER(Performed 01/26/2014) Performed for Excessive Or Frequent Menstruation * HYSTEROSCOPY ABLATION WITH NOVASURE(Performed 01/26/2014) Performed for Excessive Or Frequent Menstruation * US TRANSVAG ONLY(Performed 10/01/2013) Performed for Irregular bleeding * PAP IG RFLX HPV ASCU(Performed 09/30/2013) Performed for Routine gynecological examination * MAMMO BILAT SCREENING(Performed 05/26/2013) Performed for Other screening mammogram * CBC W AUTO DIFFERENTIAL(Performed 09/30/2012) Performed for Irregular menstrual cycle * FSH(Performed 09/30/2012) Performed for Irregular menstrual cycle * MAMMO LEFT DIAGNOSTIC(Performed 09/23/2012) Performed for Abnormal mammogram, unspecified * US OB TRANSVAGINAL(Performed 06/25/2012) Performed for Fibroid uterus, Menstrual problem * COLONOSCOPY BIOPSY (ANY METHOD)(Performed 06/20/2012) Performed for Ulcerative colitis, unspecified (HCC) * COLONOSCOPY SCREEN(Performed 06/20/2012) Performed for Ulcerative colitis, unspecified (HCC) * ENDOSCOPY, COLON, SCREENING(Performed 06/20/2012) * PATHOLOGY TISSUE EXAM (STL)(Performed 06/20/2012) Performed for Ulcerative colitis * MAMMO BILAT DIAGNOSTIC(Performed 12/18/2011) Performed for Abnormal mammogram, unspecified * MAMMO LEFT DIAGNOSTIC(Performed 05/20/2011) Performed for Abnormal mammogram, unspecified * MAMMO LEFT DIAGNOSTIC(Performed 09/27/2010) Performed for Abnormal mammogram, unspecified * MAMMO BILAT SCREENING(Performed 09/17/2010) Performed for Other screening mammogram * GROSS + MICRO EXAM(Performed 11/07/2009) * GROSS + MICRO EXAM(Performed 11/07/2009) Performed for Lump or Mass in Breast * CYTOLOGY NON-NURSE EXAMINER PANEL(Performed 10/18/2009) * CYTOLOGY NON-NURSE EXAMINER PANEL(Performed 10/18/2009) Performed for Lump or Mass in Breast * US BREAST LEFT COMPLETE(Performed 10/17/2009) * MAMMO BILAT SCREENING(Performed 08/07/2009) Performed for Other Screening Mammogram * GROSS + MICRO EXAM(Performed 08/27/2008) * GROSS + MICRO EXAM(Performed 08/04/2003) * GROSS + MICRO EXAM(Performed 08/25/1999) * CYTOLOGY SMEAR PAP(Performed 10/21/1996) * GROSS + MICRO EXAM(Performed 10/18/1995) Results * CARDIAC RHYTHM STRIP ORDER (12/23/2017 2:10 AM CDT) Only the most recent of2 resultswithin the time period is included. Narrative 12/23/2017 2:10 AM CDT Ordered by an unspecified provider. Scanned Document CARDIAC SERVICES ORD ERABLES * ENDOTRACHEAL TUBE NOTE (12/20/2017 6:00 AM CDT) Narrative Victor M Pittman MD - 12/20/2017 6:00 AM CDT Joseph Perez APRN-HOME SERVICE DIRECTOR ? 12/19/2017 12:49 PM Endotracheal Tube Placement: ? Patient Location: OR. Intubation Event Date/Time: ??12/18/2017 7:50 AM Procedure: intubation ([id number]). Procedure Section: ?? Sedation: under general anesthesia. Indications for Airway Management: ??anesthesia Pretreatment: 100% O2. Induction: standard IV Patient Position: ??sniffing Mask Ventilation: easy. Blade Type: Ranjit Blade Size: 3 Laryngoscopy View: grade 1 (full cords) Intubation Adjuncts: cricoid pressure and stylet Device: endotracheal tube Placement: oral Tube type: cuff - inflated Tube Size (MM): 7 Depth of Insertion (CM): 21 Measured From: lips Cuff volume (mL): ??5 Cuff Inflated With: air Number of Attempts: 1. Placement Verified By: direct visualization, bilateral breath sounds, chest auscultation and CO2 monitor Procedure Start Time: 12/18/2017 7:50 AM. Procedure End Time: 12/18/2017 7:51 AM. Procedure Total Time: 1 ??minutes. Staff Section ?? Anesthesia Provider: JOSEPH PEREZ, Performed Victor M Pittman MD GENERAL ANESTHESIA ORDERABLES * BAMBI SCREENING DIGITAL IMAGE BILATERAL [id number] (05/01/2017 2:22 PM INSTRUCTIONAL TECHNOLOGY COORDINATOR) Only the most recent of6 resultswithin the time period is included. Anatomical Region Laterality Modality Breast Bilateral Mammography 05/02/2017 8:00 AM INSTRUCTIONAL TECHNOLOGY COORDINATOR Impressions 05/02/2017 10:02 AM INSTRUCTIONAL TECHNOLOGY COORDINATOR No mammographic evidence of malignancy in either [...] participate in the care of your patient. [facility] Breast [facility] utilizes PathJump as a reminder system to notify patients of their next recommended mammogram. I, Shoshana Law, have personally reviewed the images and I agree with this report. Narrative 05/02/2017 10:02 AM INSTRUCTIONAL TECHNOLOGY COORDINATOR EXAMINATION: Digital screening mammogram on May 01, [...] have been scanned as a document/letter in [facility] electronic medical record (media tab). Please note [...] examination. Marylin Mondragon MD MAMMO ORDERABLES * US BREAST RIGHT LTD (04/21/2015 10:34 AM CDT) Anatomical Region Laterality Modality Breast Right Ultrasound 04/21/2015 11:5 1 AM CDT Impressions 04/21/2015 11:52 AM CDT 1. ??No evidence of malignancy in right breast. 2. ??No mammographic or sonographic correlate for area of clinical concern in right breast. In the absence of imaging findings, any decision for further intervention should be based on the clinical assessment. ASSESSMENT: BIRADS Category 1: Negative mammogram. RECOMMENDATION: Bilateral screening mammogram in July 2015. Findings and recommendation were discussed with the patient by Dr. Law. Thank you for allowing us to participate in the care of your patient. [facility] utilizes PathJump as a reminder system to notify patients of their next recommended mammogram. Narrative 04/21/2015 11:52 AM CDT EXAMINATION: Digital right diagnostic mammogram and targeted right breast ultrasound on 04/21/2015. Low-dose digital breast tomosynthesis examination was performed with 2D and 3D acquisitions. Computer assisted detection was utilized. PRIOR: Multiple prior studies, most recently screening mammogram on 07/28/2014. HISTORY: 54-year-old female with area of clinical concern in right breast. FINDINGS: Breast parenchymal density: The breasts are heterogeneously dense, which may obscure small masses. No suspicious masses, areas of architectural distortion or microcalcifications are evident in the right breast on 2D mammogram or tomosynthesis images. ??There has been no significant interval change since the prior examination. ??No mammographic abnormality is identified in the area of clinical concern in the lower central right breast. Targeted ultrasound was performed in the lower central right breast, in location of clinical concern. ??No sonographic abnormality is seen. Procedure Note Shoshana Law MD - 04/21/2015 EXAMINATION: Digital right diagnostic mammogram and targeted right breast ultrasound on 04/21/2015. Low-dose digital breast tomosynthesis examination was performed with 2D and 3D acquisitions. Computer assisted detection was utilized. PRIOR: Multiple prior studies, most recently screening mammogram on 07/28/2014. HISTORY: 54-year-old female with area of clinical concern in right breast. FINDINGS: Breast parenchymal density: The breasts are heterogeneously dense, which may obscure small masses. No suspicious masses, areas of architectural distortion or microcalcifications are evident in the right breast on 2D mammogram or tomosynthesis images. There has been no significant interval change since the prior examination. No mammographic abnormality is identified in the area of clinical concern in the lower central right breast. Targeted ultrasound was performed in the lower central right breast, in location of clinical concern. No sonographic abnormality is seen. IMPRESSION 1. No evidence of malignancy in right breast. 2. No mammographic or sonographic correlate for area of clinical concern in right breast. In the absence of imaging findings, any decision for further intervention should be based on the clinical assessment. ASSESSMENT: BIRADS Category 1: Negative mammogram. RECOMMENDATION: Bilateral screening mammogram in July 2015. Findings and recommendation were discussed with the patient by Dr. Law. Thank you for allowing us to participate in the care of your patient. [facility] utilizes PathJump as a reminder system to notify patients of their next recommended mammogram. Shoshana Law MD US ORDERABLES * MAMMO DIAG DIRECT DIGITAL IMAGE UNIL RIGHT (04/21/2015 9:48 AM CDT) Anatomical Region Laterality Modality Right Mammography 04/21/2015 11:5 1 AM CDT Impressions 04/21/2015 11:52 AM CDT 1. ??No evidence of malignancy in right breast. 2. ??No mammographic or sonographic correlate for area of clinical concern in right breast. In the absence of imaging findings, any decision for further intervention should be based on the clinical assessment. ASSESSMENT: BIRADS Category 1: Negative mammogram. RECOMMENDATION: Bilateral screening mammogram in July 2015. Findings and recommendation were discussed with the patient by Dr. Law. Thank you for allowing us to participate in the care of your patient. [facility] utilizes PathJump as a reminder system to notify patients of their next recommended mammogram. Narrative 04/21/2015 11:52 AM CDT EXAMINATION: Digital right diagnostic mammogram and targeted right breast ultrasound on 04/21/2015. Low-dose digital breast tomosynthesis examination was performed with 2D and 3D acquisitions. Computer assisted detection was utilized. PRIOR: Multiple prior studies, most recently screening mammogram on 07/28/2014. HISTORY: 54-year-old female with area of clinical concern in right breast. FINDINGS: Breast parenchymal density: The breasts are heterogeneously dense, which may obscure small masses. No suspicious masses, areas of architectural distortion or microcalcifications are evident in the right breast on 2D mammogram or tomosynthesis images. ??There has been no significant interval change since the prior examination. ??No mammographic abnormality is identified in the area of clinical concern in the lower central right breast. Targeted ultrasound was performed in the lower central right breast, in location of clinical concern. ??No sonographic abnormality is seen. Liliana Patel MD MAMMO ARLETTE ABA * AMB REFERRAL TO COLORECTAL SURGERY (03/28/2015 2:32 PM CDT) Liliana Patel MD OUTPATIENT REFERRALS * GROSS + MICRO EXAM (STL) (01/26/2014 12:15 PM CDT) Only the most recent of2 resultswithin the time period is included. Case Report Surgical Pathology Report ? Case: [id number] ? Authorizing Provider: ??Liliana Hillman ?Collected: ? 01/26/2014 12:15 PM ? MD Jorge ? Ordering Location: ? [facility] ? Received: ?01/26/2014 01:16 PM ? Pathologist: ? Rachel Winn MD ? Signed Out: ?01/27/2014 02:10 PM (Final) Specimen: ?Endometrium Curettings ? 01/27/2014 2:10 PM CDT [facility] Final Diagnosis 1. Endometrial curettings: -- Proliferative pattern /na 01/27/2014 2:10 PM CDT [facility] Gross Description The specimen is received in a single formalin-filled container for gross and microscopic examination, labeled with the patient's name, Laurie Adame, and endometrium curettings, and it consists of a 2 x 2 x 0.3 cm aggregate of pink-galeano tissue admixed with coagula. The specimen is strained in a mesh bag and submitted entirely in cassette A1. /na 01/27/2014 2:10 PM CDT [facility] Microscopic Description Microsections reveal multiple fragments of intact endometrial glands and stroma revealing a proliferative pattern. There is no evidence of polyp formation, hyperplasia or malignancy. /na 01/27/2014 2:10 PM CDT [facility] Pathology/Cytolo gy SPECIMEN FROM ENDOMETRIUM OBTAINED BY CURETTAGE / Unknown 01/26/2014 12:15 PM CDT 01/26/2014 1:16 PM CDT Comment:626.2 Liliana Patel MD LAB - PATH OLOGY/CYTOLOGY ORDERABLES Performing Organization Address City/State/[facility] Co de Phone Number [facility] [address] [place] [address] * CYTOLOGY CERVICAL/VAG SCREEN THIN PREP (01/26/2014 12:09 PM CDT) ThinPrep Pap See Scanned Report 02/15/2014 12:06 PM CDT [facility] REF [facility] NON INTERF Miscellaneous samples (specimen) ENTIRE ENDOCERVIX / Unknown Collection / Unknown 01/26/2014 12:09 PM CDT 01/26/2014 1:58 PM CDT Liliana Patel MD LAB - PATH OLOGY/CYTOLOGY ORDERABLES Performing Organization Address City/[facility]/ZIP Co de Phone Number [facility] REF LAB NON INTERF [address] [place] [address] * HCG URINE QUALITATIVE - POINT OF CARE (IP) (01/26/2014 10:50 AM CDT) HCG Qual Urine Negative Negative [facility] POCT TESTING QC Verified Yes [facility] POC T TESTING Urine specimen (specimen) URINE / Unknown 01/26/2014 10:50 AM CDT Liliana Patel MD LAB - POIN T OF CARE ORDERABLES Performing Organization Address [facility] Co de Phone Number [facility] POCT TESTING [address] [place] [address] * US TRANSVAG ONLY (10/01/2013 9:39 AM CDT) Anatomical Region Laterality Modality Other Narrative 10/01/2013 9:39 AM CDT Bolivar Buckley RDMS ? 10/01/2013 ??9:39 AM [facility] ULTRASOUND of FEMALE PELVIS (non-, abdominal and/or endovaginal) Pt. Name: Laurie Adame : ??1960 : Exam Date: ?? 09/30/2013 LMP: ??No LMP recorded. Transabdominal: ??No Transvaginal: ??Yes Hormone Therapy: No Reason for Scan: ??dysfunctional uterine bleeding Uterine orientation: ??anteverted Endometrial thickness: ??16.3 mm. (double thickness, longitudinal view, A andP) Uterine measurements: Length 101.9 mm. ?Width ??67.4 mm. ?Height 57.3 mm. ?? Texture of uterus: ??The uterus was homogenous Endometrial or uterine abnormalities: ??normal Right Ovary: ??normal Left Ovary: ??normal Fluid in Cul de Sac: The cul-de-sac is free and contains no fluid Other: Uterine fibroids, there is a 2.6cm x 2.9cm submucosal fibroid. There is a fundal fibroid 2.5cm. A small anterior fibroid about 1cm was also seen Paid Intern: ??Bolivar Buckley RDMS Images will be scanned into the record. Interpreting Physician: Liliana Patel M.D. ? Procedure Note Bolivar Buckley RDMS - 09/30/2013 2:13 PM CDT [facility] ULTRASOUND of FEMALE PELVIS (non-, abdominal and/orendovaginal) Pt. Name: Laurie Adame : 1960 : Exam Date: 09/30/2013 LMP: No LMP recorded. Transabdominal: No Transvaginal: Yes Hormone Therapy: No Reason for Scan: dysfunctional uterine bleeding Uterine orientation: anteverted Endometrial thickness: 16.3 mm. (double thickness, longitudinal view, AandP) Uterine measurements: Length 101.9 mm. Width 67.4 mm. Height 57.3 mm. Texture of uterus: The uterus was homogenous Endometrial or uterine abnormalities: normal Right Ovary: normal Left Ovary: normal Fluid in Cul de Sac: The cul-de-sac is free and contains no fluid Other: Uterine fibroids, there is a 2.6cm x 2.9cm submucosal fibroid.There is a fundal fibroid 2.5cm. A small anterior fibroid about 1cm wasalso seen Paid Intern: Bolivar Buckley RDMS Images will be scanned into the record. Interpreting Physician: Liliana Patel M.D. Liliana Patel MD US ORDERAB LES * PAP SMEAR IG RFLX HPV ASCU (PO REF LAB) (09/30/2013 12:32 PM CDT) Diagnosis [facility] INSURANCE BILL Comment:UNSATISFACTORY FOR E VALUATION. Recommendation [facility] INSURANCE BILL Comment:Suggest follow up as clinically appropriate. Specimen Adequacy [facility] INSURANCE BILL Comment: Specimen processed and examined but unsatisfactory for evaluation because of insufficient cellularity. Areas of partially obscuring blood are present. Clinician Provided ICD9 [facility] INSURANCE BILL Comment:V72.31 ; Routine transplant nurse ecological examination Performed by [facility] INSURANCE BILL Comment:Inna Dent, Cytot echnologist ([facility]) QC Reviewed by [facility] INSURANCE BILL Comment:Tatyana Bowman Forklift Mechanic ([facility]) Comment . [facility] INSURANCE BILL Note [facility] INSURANCE BILL Comment: The Pap smear is a screening test designed to aid in the detection of premalignant and malignant conditions of the uterine cervix. ??It is not a diagnostic procedure and should not be used as the sole means of detecting cervical cancer. ??Both false-positive and false-negative reports do occur. ? . IGLBP CPT Code Automation NOT NEEDED [facility] INSURANCE BILL Comment: The Thin Prep(R) Office Workforce Planner was unable to read this specimen. ??Therefore a manual review was performed. Ancillary determined the test is not needed Note [facility] INSURANCE BILL Comment: The HPV DNA reflex criteria were not met with this specimen result therefore, no HPV testing was performed. ? . MICROSCOPIC CYTOLOGIC EXAMINATION OF SMEAR OF SPECIMEN FROM FEMALE GENITAL TRACT PREPARED USING PAPANICOLAOU TECHNIQUE / Unknown 09/30/2013 12:32 PM CDT 10/01/2013 3:20 AM CDT Narrative [facility] INSURANCE BILL - 10/06/2013 4:09 PM CDT Source.............Cervical;Endocervical No. of containers..01 CYTYC Thin Prep Vial Resulting Agency Comment [facility] Darnell Florian ??Darnell LUJAN [phone] Liliana Patel MD LAB - PATH OLOGY/CYTOLOGY ORDERABLES [facility] INSURANCE BILL * FSH (09/30/2012 8:32 AM CDT) [facility] FSH 9.3 mIU/mL [facility] Comment: ?Reference Range ? Follicular Phase ? 2.5-10.2 ? Mid-cycle Peak ? 3.1-17.7 ? Luteal Phase ? 1.5- 9.1 ? Postmenopausal ? 23.0-116.3 ? Test Performed at: [facility] [address] ??[id number] MONICA JOHNSON DO,MPH Blood specimen (specimen) BLOOD SPECIMEN / Unknown 09/30/2012 8:32 AM CDT 09/30/2012 8:34 AM CDT Liliana Patel MD LAB - CHEM ISTRY ORDERABLES [facility] [address] [place] [address] * (ABNORMAL) CBC W AUTO DIFFERENTIAL (09/30/2012 8:32 AM CDT) [facility] White Blood Cell Count 5.9 3.8 - 10.8 Thousand/u L [facility] RBC 3.90 3.80 - 5.10 Million/uL [facility] Hemoglobin 11.2(L) 11.7 - 15.5 g/dL [facility] Hematocrit 34.1(L) 35.0 - 45.0 % [facility] MCV 87.6 80.0 - 100.0 fL [facility] MCH 28.6 27.0 - 33.0 pg [facility] MCHC 32.7 32.0 - 36.0 g/dL [facility] RDW 14.4 11.0 - 15.0 % [facility] Platelet Count 174 140 - 400 Thousand/u L [facility] Neutrophil Absolute 3947 1500 - 7800 cells/uL [facility] Lymphocytes Absolute 1516 850 - 3900 cells/uL [facility] Absolute Monocytes 348 200 - 950 cells/uL [facility] Eosinophils Absolute 83 15 - 500 cells/uL [facility] Basophils Absolute 6 0 - 200 cells/uL [facility] Granulocytes % 66.9 % [facility] Lymphocytes % 25.7 % [facility] Monocytes % 5.9 % [facility] Eosinophils % 1.4 % [facility] Basophils % 0.1 % [facility] Comment: Test Performed at: [facility] [id number] [place] [address] ??[phone] MONICA JOHNSON DO,MPH Blood specimen (specimen) BLOOD SPECIMEN / Unknown 09/30/2012 8:32 AM CDT 09/30/2012 8:34 AM CDT Liliana Patel MD LAB - YOVANI TOLOGY ORDERABLES [facility] [address] [place] [address] * BAMBI DIAG DIRECT DIG IMAGE UNI LEFT [id number] (09/23/2012 9:20 AM CDT) Only the most recent of3 resultswithin the time period is included. Anatomical Region Laterality Modality Left Mammography 09/23/2012 9:48 AM CDT Narrative 09/23/2012 9:48 AM CDT EXAMINATION: Left digital diagnostic mammogram ??on 09/23/2012 INDICATION: Short-term followup calcifications FINDINGS: Computer assisted detection was utilized. ?? Tissue is heterogeneously dense which may obscure small masses. Comparison is made with prior mammograms since September 2010. Scattered calcifications in the left breast are stable. No new abnormality is noted. Patient can return to routine screening within the neck six months. Her last bilateral study with the end of November 2011.. ? ASSESSMENT: BIRADS Category 2: ?? Benign finding(s). RECOMMENDATION: Screening mammogram in six months, see above. Procedure Note Chula Forbes MD - 09/23/2012 EXAMINATION: Left digital diagnostic mammogram on 09/23/2012 INDICATION: Short-term followup calcifications FINDINGS: Computer assisted detection was utilized. Tissue is heterogeneously dense which may obscure small masses. Comparison is made with prior mammograms since September 2010. Scattered calcifications in the left breast are stable. No new abnormality is noted. Patient can return to routine screening within the neck six months. Her last bilateral study with the end of November 2011.. ASSESSMENT: BIRADS Category 2: Benign finding(s). RECOMMENDATION: Screening mammogram in six months, see above. Marylin Mondragon MD MAMMO ORDERABLES * US UTERUS TRANSVAGINAL (06/25/2012 1:55 PM INSTRUCTIONAL TECHNOLOGY COORDINATOR) Anatomical Region Laterality Modality Pelvis, Abdomen Other Narrative 06/25/2012 1:55 PM INSTRUCTIONAL TECHNOLOGY COORDINATOR Bolivar Buckley RDMS ? 06/25/2012 ??1:55 PM [facility] ULTRASOUND of FEMALE PELVIS (non-, abdominal and/or endovaginal) Pt. Name: Laurie Adame : ??1960 : Exam Date: ?? 06/19/2012 LMP: ??No LMP recorded. Transabdominal: ??No Transvaginal: ??Yes Hormone Therapy: No Reason for Scan: ??Uterine fibroids Uterine orientation: ??anteverted Endometrial thickness: ??6.0 mm. (double thickness, longitudinal view, A andP) Uterine measurements: Length 94.5 mm. ?Width ??57.7 mm. ?Height 48.5 mm. ?? Texture of uterus: ??The uterus was homogenous Endometrial or uterine abnormalities: ??normal Right Ovary: ??normal Left Ovary: ??normal Fluid in Cul de Sac: The cul-de-sac is free and contains no fluid Other: Three uterine fibroids, all are 2.5cm or less. One is posterior to the EMC and the other two are fundal Paid Intern: ??Bolivar Buckley RDMS Images will be scanned into the record. Interpreting Physician: Liliana Covington M.D. ? Procedure Note Bolivar Buckley RDMS - 06/19/2012 2:48 PM CST [facility] ULTRASOUND of FEMALE PELVIS (non-, abdominal and/orendovaginal) Pt. Name: Laurie Adame : 1960 : Exam Date: 06/19/2012 LMP: No LMP recorded. Transabdominal: No Transvaginal: Yes Hormone Therapy: No Reason for Scan: Uterine fibroids Uterine orientation: anteverted Endometrial thickness: 6.0 mm. (double thickness, longitudinal view, AandP) Uterine measurements: Length 94.5 mm. Width 57.7 mm. Height 48.5 mm. Texture of uterus: The uterus was homogenous Endometrial or uterine abnormalities: normal Right Ovary: normal Left Ovary: normal Fluid in Cul de Sac: The cul-de-sac is free and contains no fluid Other: Three uterine fibroids, all are 2.5cm or less. One is posterior tothe EMC and the other two are fundal Paid Intern: Bolivar Buckley RDMS Images will be scanned into the record. Interpreting Physician: Liliana Covington M.D. Liliana Patel MD US ORDERAB LES * ENDOSCOPY, COLON, SCREENING (06/20/2012 11:27 AM INSTRUCTIONAL TECHNOLOGY COORDINATOR) Narrative [facility] ENDOSCOPY - 06/20/2012 11:27 AM INSTRUCTIONAL TECHNOLOGY COORDINATOR Procedure Note Erna Soto MD - 06/20/2012 11:27 AM CST Erna Soto MD GI PROCEDURE ORDERAB LES [facility] ENDOSCOPY * BAMBI DIAG DIRECT DIG IMAGE BILATERAL G0204 (12/18/2011 9:52 AM CDT) Anatomical Region Laterality Modality Bilateral Mammography 12/18/2011 9:52 AM CDT Narrative 12/18/2011 9:52 AM CDT EXAMINATION: Bilateral digital diagnostic mammogram on 12/18/2011 INDICATION: Right yearly mammogram and short-term followup left breast calcifications FINDINGS: Computer assisted detection was utilized. ??The tissue density is dense which decreases the overall sensitivity of the mammogram. Multiple views of both breast were obtained including magnification views of the left breast which again demonstrate microcalcifications in the medial portion of the left breast which appear stable since the prior study of 05/12/2011. ASSESSMENT: BIRADS Category 3: ??Probably benign finding. ??Short interval follow up suggested. RECOMMENDATION: Diagnostic left breast mammogram in six months. [facility] [place] utilizes [employer] as a reminder system to notify patients of their next recommended mammogram. Procedure Note Khari Ulrich MD - 12/18/2011 EXAMINATION: Bilateral digital diagnostic mammogram on 12/18/2011 INDICATION: Right yearly mammogram and short-term followup left breast calcifications FINDINGS: Computer assisted detection was utilized. The tissue density is dense which decreases the overall sensitivity of the mammogram. Multiple views of both breast were obtained including magnification views of the left breast which again demonstrate microcalcifications in the medial portion of the left breast which appear stable since the prior study of 05/12/2011. ASSESSMENT: BIRADS Category 3: Probably benign finding. Short interval follow up suggested. RECOMMENDATION: Diagnostic left breast mammogram in six months. [facility] [place] utilizes [employer] as a reminder system to notify patients of their next recommended mammogram. Erna Soto MD MAMMO ORDERABLES * GROSS + MICRO EXAM (11/07/2009 12:00 AM CDT) Only the most recent of6 resultswithin the time period is included. Pathologist [facility] [place] Result CASE NUMBER [id number] Comment: ORDERING PHYSICIAN ??KENTON GARCIA SPECIMEN TYPE ?Breast Mass-lt breast mass Date ? 11/07/2009 Physician ?Dez Garcai Description ? The specimen is received in Formalin labeled with the patient's name, Laurie Rosario, and left breast mass. ??It consists of a 5 x 3 x 2 cm yellow galeano piece of breast tissue. ??There are areas of hemorrhage also visible on the surface. ??A white galeano well circumscribed lobulated area measuring up to 1.5 cm in maximum diameter is also noted at one end of the specimen. ??This area has been previously surgically opened. ??The cut surface reveals a slightly lobulated appearance with diminutive areas of hemorrhage. ??The cut surface abuts the surgical margin in all dimensions. ??The external surface of the specimen is inked with Isela ink. ??The specimen is serially sectioned, and major account representative sections of the specimen are submitted as follows Cassettes A through C ?? Sections through the entire tumor . Cassettes D and E ?? [facility] sections from the grossly uninvolved breast tissue. MD shanks Microscopic Exam ? Sections show breast with a fibroadenoma. The tumor is biphasic. The stroma is hypocellular and shows fibrocollagenous tissue with myxoid change. The epithelial component shows branching ducts lined by benign ductal epithelial cells. There is no evidence of malignancy. ??Microcalcifications are seen in benign breast tissue. MC/na Diagnosis ? I. ?Left breast mass, excisional ?biopsy -- ?Fibroadenoma -- ?Microcalcifications are seen in benign breast tissue MC/na Unix Manager ? na Pathologist ?Panda Cochran MD Snomed. ?11/08/2009 1224 <1> CPT code ? 05340 MISCELLANEOUS SAMPLE S / Unknown 11/07/2009 11/07/2009 10:40 AM CDT Historical Provider LAB - PATHOLOGY/C YTOLOGY ORDERABLES * CYTOLOGY NON-NURSE EXAMINER PANEL (10/18/2009 11:45 AM CDT) Only the most recent of2 resultswithin the time period is included. Result CASE NUMBER [id number] Comment: ORDERING PHYSICIAN ??KENTON GARCIA SPECIMEN TYPE ?Breast Aspirate Date ? 10/23/2009 Physician ?Dr. Garcia Specimen Adequacy ?Satisfactory for evaluation. Cell Pathology ? groups of bland ductal epithelial cells are seen, some of which form papillary structures, myoepithelial cells are seen. *Comment ? The cytology is consistent with a papillary lesion, favor benign. Snomed. ?10/23/2009 1544 <1> Pathologist ?Panda Cochran MD CPT code ? 86790 Gross Description ?Slides received with no gross description. MISCELLANEOUS SAMPLES / Unknown 10/18/2009 11:45 AM CDT 10/19/2009 10:26 AM CDT Historical Provider LAB - PATHOLOGY/C YTOLOGY ORDERABLES * US BREAST UNILATERAL LEFT (10/17/2009) Anatomical Region Laterality Modality Breast Left Other Kenton Garcia MD US ORDERABLES * CYTOLOGY SMEAR PAP (10/21/1996 7:44 AM CDT) Result CASE NUMBER [id number] Comment: ORDERING PHYSICIAN ??LUIZ CHAN SPECIMEN TYPE ?PAP Smear Date ? 10/18/1996 Procedure ?Cervical/Endocervical Specimen Adequacy ?Satisfactory for Evaluation Categorization ? Benign Cellular Changes Comment ?Hyperkeratosis Present. Snomed. ?11/01/1996 1545 <1> Forklift Mechanic ? Jose Rico(ASCP) PAP Footnote ? The PAP smear is only a screening procedure to aid in the detection of cervical cancer and its precursors. ??It is not a diagnostic procedure and should not be used as the sole means to detect cervical cancer. ??Both false-negative and false positive results have been experienced. MISCELLANEOUS SAMPLES / Unknown 10/21/1996 7:44 AM CDT 10/21/1996 7:44 AM CDT Historical Provider LAB - PATHOLOGY/C YTOLOGY ORDERABLES Care Teams Warehouse Manager Relationship Specialty Start Date End Date Liliana Patel MD [address] [place] [address] [place] [address] PCP - OBGYN Obstetrics and Gynecology 09/23/12 Marylin Mondragon MD [address] [facility] [address] [place] [address] PCP - General Internal Medicine 09/23/12
--- OUTSIDE RECORDS SUMMARY | 2024-07-21 13:49 | XMS_ITS | Referral Summary ---
Author Organization [facility] [employer] Address [address] [place] [address] Care Team Providers Care Risk Control Specialist Name Role Phone Liliana Patel MD Unavailable + Marylin Mondragon MD Primary Care Provider [phone] Source Comments [facility],non-owned Affiliates and Associated Physician Practices is amultiple site organization consisting of ambulatory clinics and hospital sitesin [place], [place], [place] and [place]. This disclosure is being madepursuant to the Care Everywhere program and may not contain all information available regarding this patient. Last updated 18.[facility] Allergies No known active allergies Medications * Be aware that medications may not be up to date on this document. Always verify current medications with the patient. Medication Sig [...] Overview (09/20/2017): 01/07/2014: PAP NILM --> Repeat 201611/23/2015: MMG negative BIRADS-2 04/21/2015: Targeted sono/MMG BIRADS-1 --> Repeat 07/2015 IMO update 09 21 2017 Social History Tobacco Use Types Packs/Day Years [...] 12/18/2017 6:50 AM CDT Plan of Treatment Not on file Procedures Procedure Name Priority Date/Time Associated Diagnosis Comments MAMMO BILAT SCREENING Routine 05/01/2017 2:22 PM CARD GAME OPERATOR Visit for screening mammogram CYTOLOGY CERVICAL/VAG PAP SCREEN THIN PREP Routine 01/26/2014 12:09 PM CDT Screening ENDOSCOPY, COLON, SCREENING Routine 06/20/2012 11:27 AM CARD GAME OPERATOR from Last 3 Months or Most Recently Relevant to Health Maintenance Results * BAMBI SCREENING DIGITAL IMAGE BILATERAL G0202 (05/01/2017 2:22 PM CARD GAME OPERATOR) Anatomical Region Laterality Modality Breast Bilateral Mammography 05/02/2017 8:00 AM CARD GAME OPERATOR Impressions 05/02/2017 10:02 AM CARD GAME OPERATOR No mammographic evidence of malignancy in either [...] in the care of your patient. [facility] utilizes [employer] as a reminder system to notify patients of their next recommended mammogram. I, Shoshana Law, have personally reviewed the images and I agree with this report. Narrative 05/02/2017 10:02 AM CARD GAME OPERATOR EXAMINATION: Digital screening mammogram on May 01, [...] have been scanned as a document/letter in [facility] electronic medical record (media tab). Please [...] See Scanned Report 02/15/2014 12:06 PM CDT [facility] REF LAB NON INTERF Miscellaneous samples (specimen) ENTIRE ENDOCERVIX / Unknown Collection / Unknown 01/26/2014 12:09 PM CDT 01/26/2014 1:58 PM CDT Liliana Patel MD LAB - PATH OLOGY/CYTOLOGY ORDERABLES Performing Organization Address City/[facility]/ZIP Co de Phone Number [facility] REF LAB NON INTERF [address] * ENDOSCOPY, COLON, SCREENING (06/20/2012 11:27 AM CARD GAME OPERATOR) Narrative [facility] ENDOSCOPY - 06/20/2012 11:27 AM CARD GAME OPERATOR Procedure Note Erna Soto MD - 06/20/2012 11:27 AM CST Erna Soto MD GI PROCEDURE ORDERAB LES Performing Organization Address [facility] [[email or web address]] Co de Phone Number [facility] ENDOSCOPY from Last 3 Months or Most Recently Relevant to Health Maintenance Care Teams Risk Control Specialist Relationship Specialty Start Date End Date Liliana Patel, MD [address] [facility] [facility] [address] [address] [place] [address] PCP - OBGYN Obstetrics and Gynecology 09/23/12 Marylin Mondragon MD [address] [address] PCP - General Internal Medicine 09/23/12
--- OUTSIDE RECORDS SUMMARY | 2024-07-21 13:49 | XMS_ITS | Referral Summary ---
Author Organization [facility] Address [address] [place] [address] Care Team Providers Care Supply Chain Manager Name Role Phone Tona Duran MD Primary Care Provider Encounters Date Type Department Care Team Description 04/27/2024 Orders Only [facility] Scanning, Provider 04/20/2024 Documentation [facility] Gastroenterology [address] [place] [address] [place] [address] Ely Nunez RN Treatment Plan Update (05/21/2024 rov) 04/20/2024 8:45 AM CDT Office Visit [facility] Gastroenterology [address] [place] [address] [place] [address] Taylor Lugo MD Ulcerative pancolitis with fistula (HCC) (Primary Dx); Rectovaginal fistula from Last 3 Months Allergies No known active allergies Medications alendronate [...] 05/11/2019 Assessment & Plan (05/11/2019 4:25 PM ESTIMATING ENGINEER): We remain concerned that her colitis represents Crohn's disease but she does appear in remission on mesalamine alone and has had not had any recurrence of fistulizing disease. She currently is not bothered by her rectovaginal fistula and is not interested in surgical intervention at this time. Plan 1. 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 Assessment & Plan (05/11/2019 4:26 PM ESTIMATING ENGINEER): Patient denies significant symptoms hand is uninterested in further intervention Crohn's disease of small and large intestines with complication 09/15/2018 Overview (09/15/2018): Added automatically from request for surgery [id number] Social History Tobacco Use Types Packs/Day Years [...] on file Legal Sex Female 1:46 PM ESTIMATING ENGINEER Gender Identity Not on file Sexual Orientation Not on file Last Filed Vital Signs Vital Sign Reading Time Taken Comments Blood Pressure 130/85 04/20/2024 8:54 AM CDT Pulse 65 04/20/2024 8:54 AM CDT Temperature 36.7 ??C (98 ??F) 04/20/2024 8:54 AM CDT Respiratory Rate 11 06/19/2022 9:46 AM ESTIMATING ENGINEER Oxygen Saturation 100% 06/19/2022 9:46 AM ESTIMATING ENGINEER Inhaled Oxygen Concentration - - Weight 78.7 kg (173 lb 6.4 oz) 04/20/2024 8:54 A M CDT Height 167.6 cm (5' 6 ) 04/20/2024 8:54 AM CDT Body Mass Index 27.99 04/20/2024 8:54 AM CDT Plan of Treatment Not on file Procedures Procedure Name Priority Date/Time Associated Diagnosis Comments SCAN - LABS 04/27/2024 COLONOSCOPY 06/19/2022 8:37 AM ESTIMATING ENGINEER from Last 3 Months or Most Recently Relevant to Health Maintenance Results * SCAN - LABS (04/27/2024) us Provider Scanning Final Result * COLONOSCOPY (06/19/2022 8:37 AM ESTIMATING ENGINEER) Anatomical Region Laterality Modality Other Narrative Procedure Note Taylor Lugo MD - 06/19/2022 8:37 AM CST [facility] Patient Name: Laurie Adame Procedure Date: 06/19/2022 8:37 AM Date of : 1960 Admit Type: Outpatient Age: 62 Gender: Female Attending MD: Taylor Lugo M.D. Room: [facility] ENDOSCOPY ROOM 3 Note Status: Finalized Procedure: Colonoscopy Indications: Long standing indeterminate colitis Referring MD: Notinfile Unknown Providers: Taylor Lugo M.D. Medicines: Monitored Anesthesia [...] The scope was passed under direct vision.The [id number] endoscope was introduced through the anus and [...] On: 06/19/2022 8:37 AM Recognized by the [employer] for promoting quality in endoscopy Taylor Lugo MD ENDOSCOPY PROCEDURES Final Re sult from Last 3 Months or Most Recently Relevant to Health Maintenance Insurance [facility] [employer] [facility] [employer] Advance Directives For more information, please contact: [phone] * Full Code (Latest Code Status on File) Date Activated Date Inactivated Comments 06/19/2022 7:42 AM 06/19/2022 2:24 PM * Full Code Date Activated Date Inactivated Comments 11/13/2018 9:52 AM 11/13/2018 4:03 PM Care Teams Supply Chain Manager Relationship Specialty Start Date End Date Tona Duran MD [address] [place] [address] PCP - General Family Medicine 06/07/22
== END 2024-07-21 12:54 | disposition home or self-care (01) ==
PROVIDERS: PCP Family Medicine; Visit Provider Nurse Practitioner
DX: Z12.31 Encounter for screening mammogram for malignant neoplasm of breast (principal); Z78.0 Asymptomatic menopausal state; M85.89 Other specified disorders of bone density and structure, multiple sites
CPT/HCPCS: 77063; 77067; 77080

== ENCOUNTER 2025-05-26 09:52 | Outpatient (CLI) | payer BC, SELFPAY ==
--- NOTE | ~2025-05-26 | US_ITS ---
EXAMINATION: US transvaginal INDICATION: Postmenopausal bleeding Comparison:No prior studies for comparison. TECHNIQUE: Multiple transabdominal and endovaginal sonographic images of the pelvis performed. FINDINGS: The uterus measures 7.3 x 3.6 x 4.6 cm. The endometrial complex measures 3 mm. The ovaries are not visualized. There is no free fluid in the pelvis. There are no abnormal masses seen on either side. IMPRESSION: 1. Unremarkable pelvic ultrasound. Reviewed, dictated and finalized at location I. PING CLERK/ADMIN
== END 2025-05-26 09:53 | disposition home or self-care (01) ==
LOC: MICIMG 09:53
PROVIDERS: PCP Family Medicine; Visit Provider Obstetrics & Gynecology Gynecology
DX: N95.0 Postmenopausal bleeding (principal)
CPT/HCPCS: 76830